=== PATIENT | female | born 2000 | race Caucasian/White ===

== ENCOUNTER 2023-06-26 11:50 | Emergency (ER) | payer OTHER, SELFPAY ==
[2023-06-26] VITALS (11 sets, daily range): BP systolic 129–137; BP diastolic 86–91; PULSE 96–116; RESP 14–34; TEMP 36.7; O2SAT 99–100
--- NOTE | ~2023-06-26 | XR_ITS ---
EXAMINATION: XR chest 2V 06/26/2023 12:15 INDICATION: Chest pain for 2 weeks PROCEDURE: 2 view chest COMPARISON: No prior studies for comparison. FINDINGS: The lungs are clear. The cardiomediastinal silhouette is within normal limits. There are no pleural effusions. There is no pneumothorax suspected. IMPRESSION: 1: NO ACUTE CARDIOPULMONARY DISEASE. Reviewed, dictated and finalized at location A.
--- NOTE | 2023-06-26 11:54 | ECG_ITS ---
Measurements Intervals [place] Rate: 98 P: 61 [place]: 147 QRS: 44 QRSD: 91 T: 73 QT: 291 QTc: 373 Interpretive Statements SINUS RHYTHM NONSPECIFIC T-WAVE ABNORMALITY- INF/LAT LEADS BASELINE ARTIFACT- I, III, AVR, AVL, V1 BORDERLINE ECG NO PREVIOUS ECG AVAILABLE FOR COMPARISON Electronically Signed On 06-26-2023 14:45:49 CDT by Chris Sultana D.O.
--- NOTE | 2023-06-26 11:57 | ED.CHESTPAIN ---
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 Patient states that chest pain began about 3 weeks ago and seems to be constant throughout every day. She notes seems to be from a worse when she lays on her left side, but no change with exertion. She denies any associated diaphoresis or lightheadedness. She does endorse some pleuritic nature of the chest pain. She states that she does not currently have a primary care doctor and she has just been monitoring her symptoms at home however today she noted the pain radiated into her left shoulder and it prompted visit to the emergency department. Chest pain is currently present right now, moderate, heaviness. She has had some palpitations however is unsure if that is due to her anxiety. She denies any lower extremity edema or calf pain. No prior history of PE or DVT. No recent injuries or surgeries. She is on OCPs. No cough, congestion, fever, chills. Related Data Allergies Allergy/AdvReac Type Severity Reaction Status Date / Time Sulfa (Sulfonamide Allergy Rash Verified 06/26/23 13:37 Antibiotics) Review of Systems Review of Systems: CONSTITUTIONAL: Denies fever, chills, or sweats. EYES: Denies visual changes, redness, or discharge. ENT: Denies rhinorrhea, congestion, sore throat, or otalgia. CARDIOVASCULAR: Chest pain, Palpitations, No edema. RESPIRATORY: Denies cough or dyspnea. GASTROINTESTINAL: Denies abdominal pain, nausea, vomiting, or diarrhea. GENITOURINARY: Denies dysuria or hematuria. SKIN: Denies rash or itching. MUSCULOSKELETAL: Denies back pain, joint pain, or myalgia. NEUROLOGIC: Denies headache, numbness, or weakness. PSYCHIATRIC: Denies anxiety or depression. Exam Narrative: GENERAL: Well-appearing, well-nourished, and in no acute distress. HEAD: Normocephalic, atraumatic. EYES: PERRLA and EOMI. ENT: Nares clear. Mucous membranes moist. NECK: Supple. CHEST: Clear to auscultation. No respiratory distress. HEART: Tachycardic. Normal peripheral pulses. ABDOMEN: Soft, nontender, nondistended. EXTREMITIES: Normal range of motion. No lower extremity edema, no calf tenderness. SKIN: Warm, dry, no rash. NEURO: No focal deficits. Alert and oriented x3. PSYCH: Soft spoken, normal affect Course Course Emergency Course: Chart review performed. Per triage, patient here with chest pain x weeks. No prior visits in our system. Triage vitals show normotensive, tachycardic at 107, O2 Sat 100%. Patient seen evaluated, in no acute distress. She is low risk Wells, PERC positive given OCP use and heart rate greater than 100. Will do screening D-dimer. Chest pain workup was additionally ordered in triage. Differentials include but are not limited to arrhythmia, pneumonia, musculoskeletal pain, pneumothorax, pericarditis, myocarditis, less likely ACS or PE. Lab work and imaging reviewed. CBC, electrolytes normal, lipase normal. CXR negative. Awaiting troponin and d-dimer. Troponin negative, chest pain has been present for 3 weeks constantly, do not believe a repeat is indicated. D-dimer negative. test negative. Will give dose of toradol and reevaluate. Will give PCP referral to Dr. Ibarra. Vital Signs Vital signs: Vital Signs Temperature 98.0 F 06/26/23 11:53 Pulse Rate 107 H 06/26/23 11:53 Respiratory Rate 18 06/26/23 11:53 Blood Pressure 137/90 06/26/23 11:53 Pulse Oximetry 100 06/26/23 11:53 Oxygen Delivery Room Air 06/26/23 11:53 Temperature 98.0 F 06/26/23 11:53 Pulse Rate 103 H 06/26/23 13:00 Respiratory Rate 19 06/26/23 13:00 Blood Pressure 129/88 06/26/23 12:16 Pulse Oximetry 100 06/26/23 12:45 Oxygen Delivery Room Air 06/26/23 12:15
[2023-06-26 12:30] LABS: Basophils Absolute Auto 0.1 K/mm3 (0.0-0.1); Basophils Percent Auto 0.6 % (0.2-1.2); Eosinophils Absolute Auto 0.1 K/mm3 (0-0.3); Eosinophils Percent Auto 0.8 % (0-4.4); Hematocrit 40.8 % (37.0-47.0); Hemoglobin 13.4 g/dL (12.0-15.0); Immature Granulocyte Absolute 0.03 K/mm3 (0.00-0.031); Immature Granulocyte Percent A 0.3 % (0-0.5); Lymphocytes Absolute Auto 2.01 K/mm3 (0.9-3.2); Lymphocytes Percent Auto 22.3 % (18.3-44.2); Mean Corpuscular HGB Conc 32.8 g/dl (32-36); Mean Corpuscular Hemoglobin 30.3 pg (26-34); Mean Corpuscular Volume 92.3 fl (80-100); Monocytes Absolute Auto 0.7 K/mm3 (0.1-0.6); Monocytes Percent Auto 7.5 % (2.6-8.5); Neutrophils Absolute Auto 6.2 K/mm3 (1.3-6.7); Neutrophils Percent Auto 68.5 % (45.5-73.1); Platelet Count Result 249 k/mm3 (150-375); Red Blood Count 4.42 M/mm3 (4.2-5.4); Red Cell Distribution Width 11.9 % (11.5-14.5)
[2023-06-26 12:40] LABS: Alanine Aminotransferase 15 U/L (6-35); Albumin Level 4.1 g/dL (3.5-5.1); Alkaline Phosphatase 66 U/L (38-126); Anion Gap 7 mmol/L (8-16); Aspartate Amino Transferase 21 U/L (14-36); Bilirubin,Total 0.7 mg/dL (0.2-1.3); Blood Urea Nitrogen 8 mg/dL (7-17); Calcium 9.1 mg/dL (8.4-10.2); Carbon Dioxide 24 mmol/L (22-30); Chloride 106 mmol/L (98-107); Estimated CRCL calculation 129 ml/min; Estimated Glomerular Filt Rate > 60; Glucose 104 mg/dL (65-110); Lipase 35 U/L (23-300); Potassium 3.9 mmol/L (3.4-5.0); Sodium 137 mmol/L (137-145)
[2023-06-26 12:43] LABS: Prothrombin Time 13.3 Seconds (11.1-14.7)
[2023-06-26 12:51] LABS: Troponin I < 0.012 ng/mL (0.000-0.034)
[2023-06-26] MEDS: Please add drug allergy info to patient profile. 1 EACH XX (12:56)
[2023-06-26] MEDS: ACETAMINOPHEN 325 MG TABLET 650 MG PO (13:00)
[2023-06-26 13:20] LABS: D Dimer < 0.27 ug/mL (<0.48)
[2023-06-26] MEDS: KETOROLAC 30 MG/ML VIAL (*BKC) 15 MG IM (13:40)
== END 2023-06-26 14:09 | disposition home or self-care (01) ==
PROVIDERS: Emergency Medicine; Emergency Provider Student in an Organized Health Care Education/Training Program
DX: R07.89 Other chest pain (principal); K58.9 Irritable bowel syndrome, unspecified; Z85.6 Personal history of leukemia; R94.31 Abnormal electrocardiogram [ECG] [EKG]
CPT/HCPCS: 36415; 71046; 80053; 81025; 83690; 84484; 85025; 85380; 85610; 85730; 93005; 96372; 99284; A9270; J1885

== ENCOUNTER 2023-07-24 13:39 | Emergency (ER) | payer OTHER, SELFPAY ==
[2023-07-24] VITALS (13 sets, daily range): BP systolic 127–136; BP diastolic 75–88; PULSE 90–126; RESP 16–31; TEMP 36.8; O2SAT 97–100
--- NOTE | ~2023-07-24 | XR_ITS ---
EXAMINATION: XR chest 2V Exam Date/Time: 07/24/2023 14:25 CDT HISTORY: CENTRALIZED CP TODAY. LEG PAIN. WORRIED OF BLOOD CLOT. NO HX Comparison: 06/26/2023. RESULT: Lines, tubes, and devices: None. Lungs and pleura: Clear. Cardiomediastinal silhouette: Stable. Other: No acute osseous or upper abdominal finding. IMPRESSION: No acute cardiopulmonary process. Reviewed, dictated and finalized at location K.
--- NOTE | ~2023-07-24 | US_ITS ---
EXAMINATION: US venous doppler [facility] DATE: 07/24/2023 16:06 INDICATION: upper leg pain . TECHNIQUE: Grayscale images without and with compression and Doppler images of the left lower extremi ty veins were obtained. COMPARISON: None FINDINGS: The left common femoral vein, profunda (deep) femoral vein, femoral vein, popliteal vein, peroneal v ein, posterior tibial veins, gastrocnemius vein, and greater saphenous vein are patent. IMPRESSION: Patent left lower extremity veins. No evidence of deep venous thrombosis. Reviewed, dictated and finalized at location K.
--- NOTE | 2023-07-24 13:48 | ECG_ITS ---
Measurements Intervals [place] Rate: 112 P: 65 [place]: 149 QRS: 10 QRSD: 84 T: 34 QT: 243 QTc: 332 Interpretive Statements SINUS TACHYCARDIA NONSPECIFIC T-WAVE ABNORMALITY BORDERLINE ECG COMPARED TO ECG 06/26/2023 12:02:31 HEART RATE INCREASED Electronically Signed On 07-25-2023 8:20:41 CDT by Joseph Wayne M.D.
[2023-07-24 14:51] LABS: Basophils Absolute Auto 0.1 K/mm3 (0.0-0.1); Basophils Percent Auto 0.5 % (0.2-1.2); Eosinophils Absolute Auto 0.1 K/mm3 (0-0.3); Eosinophils Percent Auto 0.5 % (0-4.4); Hematocrit 41.6 % (37.0-47.0); Hemoglobin 13.8 g/dL (12.0-15.0); Immature Granulocyte Absolute 0.03 K/mm3 (0.00-0.031); Immature Granulocyte Percent A 0.3 % (0-0.5); Lymphocytes Absolute Auto 2.06 K/mm3 (0.9-3.2); Lymphocytes Percent Auto 19.2 % (18.3-44.2); Mean Corpuscular HGB Conc 33.2 g/dl (32-36); Mean Corpuscular Hemoglobin 30.5 pg (26-34); Monocytes Absolute Auto 0.6 K/mm3 (0.1-0.6); Monocytes Percent Auto 5.5 % (2.6-8.5); Neutrophils Absolute Auto 7.9 K/mm3 (1.3-6.7); Platelet Count Result 270 k/mm3 (150-375); Red Blood Count 4.52 M/mm3 (4.2-5.4); Red Cell Distribution Width 12.2 % (11.5-14.5); White Blood Count 10.7 K/mm3 (4.5-10.0)
[2023-07-24 15:00] LABS: INR 0.9; Prothrombin Time 12.7 Seconds (11.1-14.7)
[2023-07-24 15:01] LABS: Alanine Aminotransferase 14 U/L (6-35); Albumin Level 4.2 g/dL (3.5-5.1); Alkaline Phosphatase 60 U/L (38-126); Anion Gap 9 mmol/L (8-16); Aspartate Amino Transferase 21 U/L (14-36); Bilirubin,Total 0.6 mg/dL (0.2-1.3); Blood Urea Nitrogen 9 mg/dL (7-17); Calcium 9.5 mg/dL (8.4-10.2); Carbon Dioxide 23 mmol/L (22-30); Chloride 106 mmol/L (98-107); Estimated CRCL calculation 146 ml/min; Estimated Glomerular Filt Rate > 60; Glucose 138 mg/dL (65-110); Lipase 48 U/L (23-300); Partial Thromboplastin Time 27.9 SECONDS (22.3-36.8); Potassium 3.4 mmol/L (3.4-5.0); Sodium 138 mmol/L (137-145)
[2023-07-24] MEDS: SODIUM CHLORIDE 0.9% IV 1,000 ML 999 ML IV CONT (15:04)
--- NOTE | 2023-07-24 15:11 | ED.EXTPRO ---
HPI - Extremity Problem General Chief complaint: Extremity Problem,Nontraumatic Stated complaint: leg pain Time Seen by Provider: 07/24/23 13:59 Source: patient Mode of arrival: ambulatory Limitations: no limitations History of Present Illness HPI Narrative: This is a 23 year old female that presents to the ER for left upper leg pain. Ongoing over the last couple of days. Was concerned for a possible blood clot. Reports she also started on develop some substernal chest pain which is sharp in nature. Reports some shortness of breath. Denies fever, lower extremity edema or erythema. Related Data Allergies Allergy/AdvReac Type Severity Reaction Status Date / Time Sulfa (Sulfonamide Allergy Rash Verified 07/24/23 13:40 Antibiotics) Review of Systems Review of Systems: CONSTITUTIONAL: Denies fever CARDIOVASCULAR: Reports chest pain. Denies edema. RESPIRATORY: Reports dyspnea. SKIN: Denies rash All systems reviewed & are unremarkable except as noted in HPI and below PMFSH Past Medical History Medical History (Updated 07/24/23 @ 17:08 by Alyssia Suarez PA-C) No active medical problems Social History Social History (Updated 07/24/23 @ 15:19 by Alyssia Suarez PA-C) Smoking status: Never smoker Exam Narrative: GENERAL: Well-appearing, well-nourished, and in no acute distress. HEAD: Normocephalic, atraumatic. EYES: EOMI. ENT: Nares clear, no rhinorrhea or epistaxis. Mucous membranes moist. Oropharynx without tonsillar hypertrophy exudate or other lesions. NECK: No JVD CHEST: Clear to auscultation. No respiratory distress. No wheezes rales or rhonchi HEART: Regular rate and rhythm. No murmur heard. Normal peripheral pulses. EXTREMITIES: Normal range of motion. No edema. SKIN: Warm, dry, no rash. NEURO: No focal deficits. Alert and oriented x3. PSYCH: Normal mood and affect Course Course Emergency Course: Patient and family updated on work-up. She reports relief in her discomfort with Toradol Vital Signs Vital signs: Vital Signs Temperature 98.2 F 07/24/23 13:46 Pulse Rate 120 H 07/24/23 13:46 Respiratory Rate 16 07/24/23 13:46 Blood Pressure 136/88 07/24/23 13:46 Pulse Oximetry 100 07/24/23 13:46 Temperature 98.2 F 07/24/23 13:46 Pulse Rate 103 H 07/24/23 16:00 Respiratory Rate 22 H 07/24/23 16:00 Blood Pressure 136/75 07/24/23 14:17 Pulse Oximetry 100 07/24/23 16:00 Oxygen Delivery Room Air 07/24/23 14:37 MDM - Extremity (Nontraumatic) MDM Narrative Medical decision making narrative: Patient presents to the ER for left upper leg pain. Ongoing over the last couple of days. Also reporting substernal chest pain. Tachycardic upon arrival, this normalized with IV fluid hydration. Her other vitals are normal. She is in no acute distress. CBC and metabolic panel without concerning findings. EKG without acute ST changes and her baseline troponin is negative. Left lower extremity venous Doppler without evidence of DVT. D-dimer is negative, PE unlikely. Chest x-ray without acute cardiopulmonary abnormality. Her heart score is a 1. Patient and family updated on work-up. She reports relief in her discomfort with Toradol. Patient is stable and felt appropriate for further outpatient evaluation. Instructed to have close follow-up with primary provider. She was given warnings to return to the ER Differential Diagnosis Differential diagnosis: Likely superficial thrombophlebitis, lower extremity edema, deep vein thrombosis of lower extremity and other (chest pain, costochondritis, muscle strain, muscle spasm, PE, pneumonia) Lab Data Attestation: I reviewed the patient's lab results. 07/24/23 14:45 07/24/23 14:45 Labs: Lab Results 07/24/23 07/24/23 Range/Units 14:44 14:45 WBC 10.7 H (4.5-10.0) K/mm3 RBC 4.52 (4.2-5.4) M/mm3 Hgb 13.8 (12.0-15.0) g/dL Hct 41.6 (37.0-47.0) % MCV 92.0 (80-100) fl [facility]
[2023-07-24 15:12] LABS: D Dimer 0.27 ug/mL (<0.48); Troponin I < 0.012 ng/mL (0.000-0.034)
[2023-07-24 15:22] LABS: Creatine Kinase 37 U/L (30-135); Magnesium 1.7 mg/dL (1.6-2.3)
[2023-07-24] MEDS: KETOROLAC 15 MG/ML VIAL (*BKC) IV PUSH (15:39)
== END 2023-07-24 17:15 | disposition home or self-care (01) ==
PROVIDERS: Emergency Provider Physician Assistant
DX: M79.652 Pain in left thigh (principal); R07.89 Other chest pain; R00.0 Tachycardia, unspecified; R94.31 Abnormal electrocardiogram [ECG] [EKG]
CPT/HCPCS: 36415; 71046; 80053; 82550; 83690; 83735; 84484; 85025; 85380; 85610; 85730; 93005; 93971; 96361; 96374; 99284; J1885; J7030